=== PATIENT | male | born 1975 | race Caucasian/White ===

== ENCOUNTER → 2018-01-10 15:38 | Outpatient (CLI) | payer OTHER | END | disposition home or self-care (01) | LOC: D.CT 15:38 | DX: J98.59 Other diseases of mediastinum, not elsewhere classified (principal) ==

== ENCOUNTER 2020-04-09 21:05 | Emergency (ER) | payer OTHER ==
[~2020-04-09] VITALS: Ht 172.7 cm; Wt 118.2 kg
[2020-04-09 21:12] VITALS: Ht 172.7 cm; Wt 118.2 kg
[2020-04-09] MEDS ORDERED: LOSARTAN-HCTZ1 EAC1 (21:16)
[2020-04-09] MEDS ORDERED: NUVIGIL250 MG (21:17)
[2020-04-09] MEDS ORDERED: [UNRECOGNIZED DRUG - OTHER] PO (21:18)
[2020-04-09 21:36] LABS: BASOPHILS 0.1 % (0-2); EOSINOPHILS 1.6 % (0-7); HEMATOCRIT 41.8 % (42.0-54.0); HEMOGLOBIN 14.1 g/dL (13.5-17.5); IMMATURE GRANULOCYTES 0.3 % (0-5); LYMPHOCYTES 22.4 % (15-50); MCHC 33.7 g/dL (31.0-37.0); MCV 88.9 fL (80.0-100.0); MEAN PLATELET VOLUME 10.3 fL (7.4-10.4); MONOCYTES 11.2 % (2-11); NEUTROPHILS 64.4 % (40-80); PLATELET COUNT 203 10x3/uL (130-400); RDW 13.2 % (11.5-14.5); WBC 7.4 10x3/uL (4.8-10.8)
[2020-04-09 21:47] LABS: APTT 28.3 SECONDS (22.8-39.4); INR 0.97 (0.85-1.17); PROTIME 12.9 SECONDS (11.6-15.0)
[2020-04-09 21:48] LABS: CALC OSMOLALITY 284 mosm/kg (275-300); CALCIUM 8.7 mg/dL (8.5-10.1); CARBON DIOXIDE 30.5 mmol/L (21.0-32.0); CHLORIDE - SERUM 103 mmol/L (98-107); CREATININE - SERUM 1.7 mg/dL (0.6-1.3); GLUCOSE 94 mg/dL (74-106); POTASSIUM - SERUM 3.4 mmol/L (3.5-5.1); SODIUM 142 mmol/L (136-145); UREA NITROGEN 17 mg/dL (7-18); eGFR NON AFRICAN AMERICAN 47 mL/min (90-120)
[2020-04-09 22:06] LABS: ALBUMIN 3.9 g/dL (3.4-5.0); ALKALINE PHOSPHATASE 91 U/L (30-120); ALT (SGPT) 43 U/L (10-68); BILIRUBIN - TOTAL 0.59 mg/dL (0.2-1.3); CKMB 0.3 U/L (0.0-3.6); CREATINE KINASE 95 UL (21-232); MAGNESIUM - SERUM 2.2 mg/dL (1.8-2.4); PROTEIN - SERUM 7.7 g/dL (6.4-8.2)
[2020-04-09 22:07] LABS: TROPONIN-I < 0.017 ng/mL (0.000-0.060)
[2020-04-09] MEDS ORDERED: INDOCIN25 MG PO (23:03)
[2020-04-09 23:29] VITALS: BP 127/77
== END 2020-04-09 23:29 | disposition home or self-care (01) ==
LOC: D.ER 21:05
PROVIDERS: Family Medicine
DX: I31.9 Disease of pericardium, unspecified (principal); R79.82 Elevated C-reactive protein (CRP); R07.89 Other chest pain